=== PATIENT | female | born 1935 | race Caucasian/White ===

== ENCOUNTER 2016-09-12 09:42 | Day surgery (SDC) | payer OTHER ==
[2016-09-12] MEDS ORDERED: ceFAZolin 2 GM/DEXTROSE 100 ML IV ONE (09:43)
[2016-09-12] MEDS ORDERED: NS 1,000 ML IV ONE (09:43)
[2016-09-12] MEDS ORDERED: diphenhydrAMINE 25 MG CAP PO ONE ×2 (09:43→10:52)
[2016-09-12] MEDS ORDERED: DIAZEPAM 5 MG TAB PO ONE (09:43)
[2016-09-12] MEDS ORDERED: BACITRACIN IRRIGATION/NS 50,000 UNITS/1,000 ML BTL IRR ONE (09:43)
--- NOTE | 2016-09-12 10:15 | CPEKG ---
Heart Rate: 78 RR Interval: 769 P-R Interval: 154 QRSD Interval: 132 QT Interval: 416 QTC Interval: 474 P [place]: 102 QRS [place]: 226 T Wave [place]: 91 EKG Severity - ABNORMAL ECG - EKG Impression: ATRIAL-SENSED VENTRICULAR-PACED RHYTHM Electronically Signed By: Tracey Cottrell 12-Sep-2016 17:09:49
[2016-09-12] MEDS ORDERED: MIDAZOLAM 2 MG/2 ML VIAL ONE (10:41)
[2016-09-12] MEDS ORDERED: BUPIVACAINE 0.5% 30 ML SDV ONE (10:41)
[2016-09-12] MEDS ORDERED: LIDOCAINE 1% 30 ML SDV ONE (10:41)
[2016-09-12] MEDS ORDERED: fentaNYL 100 MCG/2 ML INJ ONE (10:41)
[2016-09-12 10:50] LABS: % IMMATURE GRANULYOCYTES 0.4 % (0.0-1.1); ABSOLUTE IMMATURE GRANULOCYTES 0.05 10^3/uL (0.00-0.10); ABSOLUTE NRBC COUNT 0.02 10^3/uL (0-0.01); ADD DIFF? NO; ADD MORPH? NO; ADD SCAN? NO; ATYPICAL LYMPHOCYTE FLAG 20 (0-99); FRAGMENT RBC FLAG 0 (0-99); HEMATOCRIT 46.9 % (38.0-47.0); HEMOGLOBIN 15.8 g/dL (12.6-16.3); LEFT SHIFT FLG 0 (0-99); LIPEMIA HEMOLYSIS FLAG 80 (0-99); MEAN CELL HEMOGLOBIN 32.8 pg (27.9-34.1); MEAN CELL HEMOGLOBIN CONCENTR. 33.7 g/dL (32.4-36.7); MEAN CELL VOLUME 97.3 fL (81.5-99.8); MEAN PLATELET VOLUME 9.5 fL (8.7-11.7); NRBC-AUTO% 0.2 % (0.0-0.2); PLATELET CLUMPS FLAG 20 (0-99); PLATELET COUNT 143 10^3/uL (150-400); RED BLOOD CELL COUNT 4.82 10^6/uL (4.18-5.33); RED CELL DISTRIBUTION WIDTH 13.5 % (11.5-15.2)
[2016-09-12] MEDS ORDERED: DIAZEPAM 5 MG TAB ONE (10:52)
[2016-09-12 10:59] LABS: INR 1.05 (0.83-1.16); PROTIME(PATIENT) 13.6 SEC (12.0-15.0)
[2016-09-12 11:19] LABS: ANION GAP 6 mEq/L (8-16); CALCIUM 8.6 mg/dL (8.5-10.4); CARBON DIOXIDE 21 mEq/l (22-31); CHLORIDE 106 mEq/L (97-110); CREATININE 0.6 mg/dL (0.6-1.0); GLOMERULAR FILTRATION RATE > 60; GLUCOSE 102 mg/dL (70-100); POTASSIUM 5.1 mEq/L (3.5-5.2); SODIUM 133 mEq/L (134-144); SPECIMEN HEMOLYSIS 152
--- NOTE | 2016-09-12 12:32 | SUROPNOTE ---
[facility] Operative Report - Surgery Patient was consented for ICD gen change, and lab work was reviewed. Unfortunately, an elevation to WBC was noted (12.5). The patient denies complaints consistent with infection/inflammation. Patient recently stopped a steroid taper for "sinus infection" about two days ago. What is not know is if the elevation is secondary to the steroids or an infection. Steroids could mask the symptoms of an infection. Given this procedure is elective, we have opted to cancel the procedure today, wait one week, and bring the patient back for procedure at that time. Patient to have reassessment of symptoms and labs ( WBC in particular) in one week. Plans to pursue ICD gen change in one week. Patient and family were in agreement with these plans. ID was curbsided to determine their thoughts on this case, and were in agreement with conservative "wait and reassess" option.
--- NOTE | 2016-09-19 19:49 | CPIP ---
[f rep st] INVASIVE CARDIAC PROCEDURE DATE OF PROCEDURE: 09/12/2016 INDICATIONS: The patient is a pleasant 81-year-old female, typically followed by Dr. Aubrey Hatfield. S he has a cardiovascular history significant for coronary artery disease with an ischemic cardiomyopat hy. She has a biventricular ICD that was implanted back in May of 2011. Her current device is a t elective replacement indicators. PROCEDURE: Biventricular ICD generator change. TECHNIQUE: Following informed consent, the patient was brought to the cardiac catheterization [facility] in a fasting state. The left chest was prepped and draped in the usual sterile fashion. Immedi ately prior to the procedure, the patient received prophylactic antibiotics. 2% lidocaine was infilt rated in the skin overlying the existing device. Using a #10 blade, a 3 cm incision was made. Using blunt dissection, the capsule was identified which was opened sharply. The device was then delivere d from the pocket. The leads were disconnected and all leads were individually tested. The new regina ce was brought to the field. The pocket was irrigated with antibiotic-containing solution. The reigna ce was affixed to the head according to maintenance worker municipal guidelines and placed back in the pocket. The p ocket was then closed in 3 layers, initially with 2 layers of interrupted suture using 2-0 and 3-0 Vi cryl and finally running 4-0 subcuticular Stratafix for the skin. COMPLICATIONS: None. DEVICE INFORMATION: The original leads were implanted May 14, 2011. The right ventricular lead i s a [employer] Linox Smart SD 60 cm lead, model number 830061, serial number [id number]. Threshold was 0.5 to 0.6 V with a lead impedance of 619 ohms and R-waves of 18.1 MV. The coronary sinus lead is a [employer] Corox [id number], model number [id number], serial number [id number]. R-waves were 31.4. Capture w as 1.6 V at 1 millisecond with a lead impedance of 565 ohms. The atrial lead is a [employer] __ [id number], model number 4076, 45 cm in length. P waves were 1.8 mV with a capture 0.5 V at 0.5 mil liseconds and a lead impedance of 456 ohms. The new device is a [employer] 7 high-voltage device, model number 899758, serial number [id number]. DISPOSITION: The patient will be recovered in the CVC and discharged home later today. /[id number]/MODL
== END 2016-09-12 12:59 | disposition home or self-care (01) ==
LOC: FCATH 09:42
PROVIDERS: ATTEND Internal Medicine Cardiovascular Disease
DX: Z45.02 Encounter for adjustment and management of automatic implantable cardiac defibrillator (principal); Z53.09 Procedure and treatment not carried out because of other contraindication; D72.829 Elevated white blood cell count, unspecified; I48.91 Unspecified atrial fibrillation; I10 Essential (primary) hypertension; E78.5 Hyperlipidemia, unspecified; I25.10 Atherosclerotic heart disease of native coronary artery without angina pectoris; I25.5 Ischemic cardiomyopathy; Z72.0 Tobacco use
CPT/HCPCS: J0690; J2250; J3010

== ENCOUNTER → 2016-09-19 | Day surgery (SDC) | payer OTHER ==
[~2016-09-19] MED LIST: BACITRACIN IRRIGATION/NS 50,000 UNITS/1,000 ML BTL IRR ONE; BUPIVACAINE 0.5% 30 ML SDV ONE; DIAZEPAM 5 MG TAB ONE; DIAZEPAM 5 MG TAB PO ONE; LIDO/EPI 1% **for epidural** 30 ML SDV ONE; LIDOCAINE 1% 30 ML SDV ONE; MIDAZOLAM 2 MG/2 ML VIAL ONE; NS 1,000 ML IV ONE; ceFAZolin 2 GM in D5W 100 ML IV ONE; ceFAZolin 2 GM/DEXTROSE 100 ML IV ONE; diphenhydrAMINE 25 MG CAP PO ONE; fentaNYL 100 MCG/2 ML INJ ONE
--- NOTE | 2016-09-19 13:03 | CPEKG ---
Heart Rate: 79 RR Interval: 759 P-R Interval: 120 QRSD Interval: 124 QT Interval: 400 QTC Interval: 459 P Osborn: 87 QRS [place]: 0 EKG Severity - ABNORMAL ECG - EKG Impression: ATRIAL-SENSED VENTRICULAR-PACED RHYTHM Electronically Signed By: Austin Cuellar 19-Sep-2016 14:46:02
[2016-09-19 13:19] LABS: % IMMATURE GRANULYOCYTES 0.1 % (0.0-1.1); ABSOLUTE IMMATURE GRANULOCYTES 0.01 10^3/uL (0.00-0.10); ADD DIFF? NO; ADD MORPH? NO; ADD SCAN? NO; ATYPICAL LYMPHOCYTE FLAG 40 (0-99); FRAGMENT RBC FLAG 0 (0-99); HEMOGLOBIN 14.9 g/dL (12.6-16.3); LEFT SHIFT FLG 0 (0-99); LIPEMIA HEMOLYSIS FLAG 90 (0-99); MEAN CELL HEMOGLOBIN 32.3 pg (27.9-34.1); MEAN CELL HEMOGLOBIN CONCENTR. 34.7 g/dL (32.4-36.7); MEAN CELL VOLUME 93.3 fL (81.5-99.8); MEAN PLATELET VOLUME 9.4 fL (8.7-11.7); PLATELET CLUMPS FLAG 0 (0-99); PLATELET COUNT 151 10^3/uL (150-400); RED BLOOD CELL COUNT 4.61 10^6/uL (4.18-5.33); RED CELL DISTRIBUTION WIDTH 13.2 % (11.5-15.2)
[2016-09-19 13:38] LABS: INR 1.05 (0.83-1.16); PROTIME(PATIENT) 13.6 SEC (12.0-15.0)
[2016-09-19 13:51] LABS: ANION GAP 9 mEq/L (8-16); CALCIUM 8.9 mg/dL (8.5-10.4); CARBON DIOXIDE 23 mEq/l (22-31); CHLORIDE 105 mEq/L (97-110); CREATININE 0.6 mg/dL (0.6-1.0); GLOMERULAR FILTRATION RATE > 60; GLUCOSE 107 mg/dL (70-100); POTASSIUM 4.3 mEq/L (3.5-5.2); SODIUM 137 mEq/L (134-144)
--- NOTE | 2016-09-19 16:08 | CPEKG ---
Heart Rate: 71 RR Interval: 845 P-R Interval: 160 QRSD Interval: 142 QT Interval: 444 QTC Interval: 483 P [place]: 74 QRS [place]: 254 T Wave [place]: 103 EKG Severity - ABNORMAL ECG - EKG Impression: A-V DUAL-PACED RHYTHM WITH SOME INHIBITION Electronically Signed By: Austin Cuellar 19-Sep-2016 18:10:15
== END | disposition home or self-care (01) ==
LOC: FCATH 12:29
PROVIDERS: ATTEND Internal Medicine Cardiovascular Disease
PROC: 0JH608Z Insertion of Defibrillator Generator into Chest Subcutaneous Tissue and Fascia, Open Approach (ICD-10-PCS; principal; 2016-09-19)
PROC: 0JPT0PZ Removal of Cardiac Rhythm Related Device from Trunk Subcutaneous Tissue and Fascia, Open Approach (ICD-10-PCS; 2016-09-19)
DX: Z45.010 Encounter for checking and testing of cardiac pacemaker pulse generator [battery] (principal); I25.5 Ischemic cardiomyopathy; I25.10 Atherosclerotic heart disease of native coronary artery without angina pectoris; Z95.5 Presence of coronary angioplasty implant and graft; Z95.810 Presence of automatic (implantable) cardiac defibrillator; I10 Essential (primary) hypertension; E78.5 Hyperlipidemia, unspecified; F17.200 Nicotine dependence, unspecified, uncomplicated; I48.91 Unspecified atrial fibrillation; I42.9 Cardiomyopathy, unspecified; Z79.82 Long term (current) use of aspirin; Z79.02 Long term (current) use of antithrombotics/antiplatelets
CPT/HCPCS: C1882; J0690; J2250; J3010